=== PATIENT | female | born 1970 | race American Indian/Alaskan Native ===

== ENCOUNTER 2021-08-10 19:09 | Emergency (ER) | payer SELFPAY ==
[2021-08-10] MEDS ORDERED: IBUPROFEN 600 MG TAB PO ONE (22:01)
[2021-08-10] MEDS ORDERED: ACETAMINOPHEN 500 MG TAB PO ONE (22:01)
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
[2021-08-11 00:55] VITALS: BP 136/96
== END 2021-08-11 00:50 | disposition home or self-care (01) ==
LOC: ED 19:09
DX: S39.012A Strain of muscle, fascia and tendon of lower back, initial encounter (principal); M62.830 Muscle spasm of back; M54.6 Pain in thoracic spine; Z79.4 Long term (current) use of insulin; Z79.899 Other long term (current) drug therapy; V89.2XXA Person injured in unspecified motor-vehicle accident, traffic, initial encounter; Y93.89 Activity, other specified; Y92.488 Other paved roadways as the place of occurrence of the external cause; Y99.8 Other external cause status
CPT/HCPCS: 72070; 72100; 99283